=== PATIENT | male | born 1965 | race Caucasian/White ===

== ENCOUNTER 2025-03-15 09:48 | Emergency (ER) | payer OTHER ==
[~2025-03-15] VITALS: Ht 175.3 cm; Wt 109.8 kg
== END 2025-03-15 10:25 | disposition home or self-care (01) ==
LOC: ER 09:48
DX: S16.1XXA Strain of muscle, fascia and tendon at neck level, initial encounter (principal); D68.51 Activated protein C resistance; Z86.73 Personal history of transient ischemic attack (TIA), and cerebral infarction without residual deficits; Z88.5 Allergy status to narcotic agent; Z79.01 Long term (current) use of anticoagulants; V48.6XXA Car passenger injured in noncollision transport accident in traffic accident, initial encounter
CPT/HCPCS: 99283